=== PATIENT | female | born 1970 | race Caucasian/White ===

== ENCOUNTER 2021-04-19 12:01 | Emergency (ER) | payer OTHER ==
[~2021-04-19] VITALS: Ht 160 cm; Wt 45.4 kg
[~2021-04-19 12:01] MED LIST: ALBUTEROL INH IH; AUGMENTIN 875875 M1 PO; BACTROBAN CREAM30 G1; CALCIUM 1,0001 EACH; CELEXA40 MG PO; CLONAZEPAM 1 MG1 M1 PO; CLONAZEPAM PO; COLACE100 MG PO; CONCERTA ER 2727 MG; CYCLOBENZAPRINE PO; DEXAMETHASONE 22 M1 PO; DEXAMETHASONE 44 M1 PO; FISHOIL PO; FLUOXETINE HCL60 MG; GABAPENTIN PO; GEODON40 MG PO; IMITREX100 MG PO; IRON325 PO; LAMICTAL PO; MAG-OX 400 TAB400 M1 PO; MIRALAX255 GM; MIRALAX255 GM PO; MULTIVITAMINS PO; NAPROSYN500 MG PO; NEURONTIN600 MG PO; OMEGA-31000 M1; OMEPRAZOLE PO; PRENATAL; PROBIOTIC1 EACH; PROTONIX40 M2 PO; SENNA; STRATTERA60 MG PO; TIZANIDINE; TIZANIDINE HCL4 MG PO; VITAMIN D32000 UNI1; WELLBUTRIN XL300 M1 PO; ZANAFLEX4 M1 PO
[2021-04-19] MEDS ORDERED: ABILIFY10 MG PO (12:25)
[2021-04-19] MEDS ORDERED: AUGMENTIN 875-1 EACH PO (14:56)
[2021-04-19 15:21] VITALS: BP 100/50
== END 2021-04-19 15:21 | disposition home or self-care (01) ==
LOC: M.ERS 12:01
DX: S51.051A Open bite, right elbow, initial encounter (principal); Z88.5 Allergy status to narcotic agent; Z79.899 Other long term (current) drug therapy; W54.0XXA Bitten by dog, initial encounter; Y93.89 Activity, other specified; Y92.89 Other specified places as the place of occurrence of the external cause; Y99.8 Other external cause status